=== PATIENT | male | born 1945 | race Caucasian/White ===

== ENCOUNTER 2021-10-28 10:26 | Day surgery (SDC) | payer MEDICARE, SELFPAY ==
[2021-10-27 09:21] VITALS: BMI 33.0
--- NOTE | 2021-10-27 09:58 | HO.ANESPROP2 ---
Documented by User: Geno Patel NP 10/27/21 09:58 HPI - Anesthesia Eval Consult details Narrative: 76yo M for Left Eye Muscle Recession/Resection,superior oblique muscle PCP cleared [facility] Past Medical History Medical History (Updated 10/27/21 @ 09:18 by Rosalba Chavez, JORDYN) Adenoma Velasco esophagus Hyperlipemia Obese Positive PPD Social History Social History Patient Tobacco Use Status: Never used Tobacco Second Hand Smoke Exposure: No Use of substances other than those prescribed or required for medical reasons: No Are you DNR?: No Advance Directives: No Advance Directives Information Provided: Yes Advance Directives on File: No Meds Allergies Allergy/AdvReac Type Severity Reaction Status Date / Time pravastatin AdvReac Muscle Pain Verified 10/27/21 09:16 simvastatin AdvReac Muscle Pain Verified 10/27/21 09:16 Home Medications Medication Instructions Recorded Confirmed Last Taken Type amoxicillin 500 mg capsule 2 cap PO BID 10/27/21 10/27/21 Unknown History atorvastatin 20 mg tablet 1 tab PO DAILY 10/27/21 10/27/21 Unknown History Exam Exam Date and Time: October 27, 2021 0958 Height,Weight and Vital Signs: Height 6 ft 1.82 in Weight 116.4 kg Assessment and Plan Assessment Anesthesia Assessment: Chart Reviewed Documented by User: Fab Ponce MD 10/28/21 12:13 [facility] Past Medical History Medical History (Updated 10/27/21 @ 09:18 by Rosalba Chavez RN) Adenoma Velasco esophagus Hyperlipemia Obese Positive PPD Family History Family history of problems with anesthesia: No Surgical History History of Problems with Anesthesia: No Social History Social History Patient Tobacco Use Status: Never used Tobacco Second Hand Smoke Exposure: No Use of substances other than those prescribed or required for medical reasons: No Are you DNR?: No Advance Directives: No Advance Directives Information Provided: Yes Advance Directives on File: No Meds Allergies Allergy/AdvReac Type Severity Reaction Status Date / Time pravastatin AdvReac Muscle Pain Verified 10/27/21 09:16 simvastatin AdvReac Muscle Pain Verified 10/27/21 09:16 Home Medications Medication Instructions Recorded Confirmed Last Taken Type amoxicillin 500 mg capsule 2 cap PO BID 10/27/21 10/27/21 Unknown History atorvastatin 20 mg tablet 1 tab PO DAILY 10/27/21 10/27/21 Unknown History Exam Airway Mallampati Class: III TM Dist: >3cm Neck ROM: Full Loose/Missing/Broken Teeth: Yes Heart: [id number] Lungs: cta b/l Assessment and Plan Assessment Anesthesia Assessment: Anesthesia Plan Discussed Final Anesthetic Review Family History of Problems with Anesthesia: No History of Problems with Anesthesia: No NPO: Yes ASA Class: II Final Preanesthetic Review: No Changes in Pt Med Stat, Meds/Allgs Chart Reviewed, Consent Obtained/Reviewed and Anes Risks/Benef Reviewed Patient Risk: Intermediate Procedure Risk: Low Assessment/Block/Sedation in SS: Assess/Block/Sedation-SS Anesthetic Plan Anesthetic Plan: GA and Agree w/ Assess. and Plan Disposition: Standard PACU
[2021-10-28] VITALS (10 sets, daily range): BP systolic 137–164; BP diastolic 76–97; PULSE 60–79; RESP 14–16; TEMP 36.4–36.7; O2SAT 98–99
[2021-10-28] MEDS: Lactated Ringers 1,000 ML 100 ML IVCONT (11:53)
[2021-10-28] MEDS: Acetaminophen 325 MG TABLET 650 MG PO (14:53)
[2021-10-28] MEDS: oxyCODONE HCl Immed Release 5 MG TABLET 10 MG PO (14:53)
--- NOTE | 2021-10-28 15:10 | HO.OPHTHAL ---
Ophthalmology Operative Note Date of Service: 10/28/21 Narrative: Diagnosis left superior oblique palsy. Procedure left superior oblique tuck of [address] Young. Anesthesia general. Complications none. The patient was brought to the operating room placed under general anesthesia. The patient's left eye was prepped and draped in the usual sterile ophthalmic fashion. A lid speculum was placed in the eye and an incision made at bare sclera in the superior temporal fornix. The superior rectus muscle was hooked and the superior oblique tendon carefully identified and grasped with a small tenotomy hook. The tendon was transferred to a Snowden tendon Yrn and a 5 mm tuck was carried out and tied temporarily. Forced ductions showed resistance to elevation as the inferior limbus crossed the intercanthal line. The superior rectus muscles was then reamed hoped and the temporary tie was converted to a permanent ties and the superior oblique tendon. Conjunctiva was closed with interrupted Vicryl sutures. The patient was then awoken from general anesthesia and discharged to postoperative recovery in good condition.
== END 2021-10-28 15:41 | disposition home or self-care (01) ==
LOC: HO.SSS 10:27
PROVIDERS: PCP Internal Medicine; Visit Provider Ophthalmology
PROC: (CPT 67318; principal; 2021-10-28 12:40)
DX: H49.12 Fourth [trochlear] nerve palsy, left eye (principal); H53.2 Diplopia; D36.9 Benign neoplasm, unspecified site; K22.70 Barrett's esophagus without dysplasia; E78.5 Hyperlipidemia, unspecified; R76.11 Nonspecific reaction to tuberculin skin test without active tuberculosis; E66.9 Obesity, unspecified; Z68.33 Body mass index [BMI] 33.0-33.9, adult; Z79.899 Other long term (current) drug therapy; Z88.8 Allergy status to other drugs, medicaments and biological substances; Z87.891 Personal history of nicotine dependence
CPT/HCPCS: 67318; C1713; J1100; J2405; J3010